=== PATIENT | female | born 1975 | race Caucasian/White ===

== ENCOUNTER 2016-10-18 03:45 | Emergency (ER) | payer OTHER ==
[~2016-10-18] VITALS: Ht 175.3 cm; Wt 66.5 kg
[2016-10-18] MEDS ORDERED: ONDANSETRON 2MG/ML, 2ML ONE (04:11)
[2016-10-18] MEDS ORDERED: MORPHINE SULFATE 4 MG/ML, 1ML ONE (04:11)
[2016-10-18 04:23] LABS: HEMATOCRIT 36.3 % (34.6-47.8); HEMOGLOBIN 12.1 g/dL (11.7-16.4); WHITE BLOOD COUNT 5.7 x10^3/uL (3.4-10)
[2016-10-18] MEDS ORDERED: ONDANSETRON 2MG/ML, 2ML IVPush ONE (04:30)
[2016-10-18] MEDS ORDERED: MORPHINE SULFATE 4 MG/ML, 1ML IVPush PRN (04:30)
[2016-10-18] MEDS ORDERED: SODIUM CHLORIDE FLUSH 10ML SYR IVF ONE (04:30)
[2016-10-18] MEDS ORDERED: SODIUM CHLORIDE 0.9% 1,000ML IVBOLUS ONE (04:30)
[2016-10-18 04:34] LABS: ASPARTATE AMINO TRANSFERASE 16 U/L (15-37); BLOOD UREA NITROGEN 14 mg/dL (7-18)
[2016-10-18] MEDS ORDERED: OMNIPAQUE 350 MG/ML, 100ML BOTTLE ONE (05:23)
[2016-10-18 06:25] VITALS: BP 114/70
== END 2016-10-18 06:28 | disposition home or self-care (01) ==
LOC: ED 04:48
DX: D64.9 Anemia, unspecified (principal); K92.2 Gastrointestinal hemorrhage, unspecified; K92.1 Melena; R10.32 Left lower quadrant pain; K64.8 Other hemorrhoids; Z86.14 Personal history of Methicillin resistant Staphylococcus aureus infection; F17.200 Nicotine dependence, unspecified, uncomplicated
CPT/HCPCS: 36415; 74177; 80053; 81001; 83690; 84703; 85025; 96361; 96374; 96375; 99285; J2405; J7030; Q9967

== ENCOUNTER 2016-10-22 16:41 | Emergency (ER) | payer OTHER ==
[~2016-10-22] VITALS: Ht 175.3 cm; Wt 66.4 kg
[2016-10-22 18:00] LABS: BLOOD UREA NITROGEN 8 mg/dL (7-18)
[2016-10-22 18:22] LABS: HEMATOCRIT 35.8 % (34.6-47.8); HEMOGLOBIN 11.8 g/dL (11.7-16.4); WHITE BLOOD COUNT 6.4 x10^3/uL (3.4-10)
[2016-10-22 18:23] LABS: LARGE PLATELETS 1+
[2016-10-22 21:01] VITALS: BP 113/70
== END 2016-10-22 21:09 | disposition home or self-care (01) ==
LOC: ED 20:17
DX: S29.012A Strain of muscle and tendon of back wall of thorax, initial encounter (principal); R51 Headache; F17.200 Nicotine dependence, unspecified, uncomplicated; X50.3XXA Overexertion from repetitive movements, initial encounter; Y93.01 Activity, walking, marching and hiking; Y92.89 Other specified places as the place of occurrence of the external cause; Y99.8 Other external cause status
CPT/HCPCS: 36415; 70450; 72072; 80048; 81001; 82040; 85025; 87086; 93005; 99285

== ENCOUNTER 2019-02-20 21:49 | Emergency (ER) | payer OTHER ==
[~2019-02-20] VITALS: Ht 172.7 cm; Wt 71.1 kg
[2019-02-20 22:02] VITALS: BP 135/83
== END 2019-02-20 23:32 | disposition home or self-care (01) ==
LOC: ED 23:01
DX: S50.01XA Contusion of right elbow, initial encounter (principal); F17.210 Nicotine dependence, cigarettes, uncomplicated; W18.30XA Fall on same level, unspecified, initial encounter; Y93.89 Activity, other specified; Y92.009 Unspecified place in unspecified non-institutional (private) residence as the place of occurrence of the external cause; Y99.8 Other external cause status
CPT/HCPCS: 99283

== ENCOUNTER 2019-10-24 20:21 | Emergency (ER) | payer OTHER ==
[~2019-10-24] VITALS: Ht 172.7 cm; Wt 77.3 kg
--- NOTE | 2019-10-24 21:10 | NUR ---
PT STATES EVERYTIME SHE "GOES TO THE BATHROOM" (BM & URINATE) SHE SEES BLOOD & CLOTS "LIKE JELLO CLOTS" - BRIGHT RED. SX X 3 DAYS. STATES SHE WAS CONSTIPATED X 1 WEEK. TOOK DULCOLAX SUPPOSITORY ONE NIGHT THEN COLACE X 2 DAYS (LAST DOSE LAST NOC). BM X "PAST 3 DAYS". HX HEMORRHOIDS
--- NOTE | 2019-10-24 21:50 | NUR ---
DR SIMONS BS FOR EXAM. PT REPORT TO TADEO PARK. PT CARE TRANSFERRED.
--- NOTE | 2019-10-24 21:51 | NUR ---
REPORT FROM TADEO SCHULTZ. ERMD IN TO ASSESS PT AT THIS TIME.
--- NOTE | 2019-10-24 22:20 | NUR ---
plan for labs and abdominal imaging. NAD noted in pt at this time. Respirations even and unlabored on RA. Watching television with .
[2019-10-24 22:33] LABS: BASOPHILS # (AUTO) 0.03 x10^3/uL (0-0.1); BASOPHILS % (AUTO) 0 % (0-1); EOSINOPHILS % (AUTO) 4 % (1-7); LYMPHOCYTES # (AUTO) 1.83 x10^3/uL (1-3.4); LYMPHOCYTES % (AUTO) 26 % (22-44); MD NO; MEAN CORPUSCULAR HEMOGLOBIN 27.9 pg (27.0-34.8); MEAN CORPUSCULAR HGB CONC 33.1 g/dL (32.4-35.8); MEAN CORPUSCULAR VOLUME 84.3 fL (80-100); MEAN PLATELET VOLUME 9.4 fL (7.4-10.4); MONOCYTES # (AUTO) 0.57 x10^3/uL (0.2-0.8); MONOCYTES % (AUTO) 8 % (2-9); NEUTROPHILS # (AUTO) 4.39 x10^3/uL (1.8-6.8); NEUTROPHILS % (AUTO) 62 % (42-75); PLATELET COUNT 193 x10^3/uL (130-400); RED BLOOD COUNT 3.67 x10^6/uL (3.82-5.3); RED CELL DISTRIBUTION WIDTH 15.9 % (9.6-15.2)
[2019-10-24 22:43] LABS: ALBUMIN 3.4 g/dL (3.4-5.0); ANION GAP 6 mmol/L (5-15); CALCIUM 8.9 mg/dL (8.5-10.1); CHLORIDE 110 mmol/L (98-107)
[2019-10-24 22:47] LABS: ALANINE AMINOTRANSFERASE 19 U/L (12-78); ALKALINE PHOSPHATASE 79 U/L (45-117); BILIRUBIN,TOTAL 0.3 mg/dL (0.2-1.0); CREATININE 1.08 mg/dL (0.55-1.02); TOTAL PROTEIN 6.8 g/dL (6.4-8.2)
--- NOTE | 2019-10-24 23:10 | NUR ---
PT UP FOR RECHECK. NAD NOTED IN PT AT THIS TIME. RESPIRATIONS EVEN AND UNLABORED ON RA. AT BEDSIDE.
[2019-10-24 23:14] VITALS: BP 122/71
== END 2019-10-24 23:46 | disposition home or self-care (01) ==
LOC: ED 23:06
DX: K64.8 Other hemorrhoids (principal); K42.9 Umbilical hernia without obstruction or gangrene; K92.1 Melena; F17.210 Nicotine dependence, cigarettes, uncomplicated
CPT/HCPCS: 36415; 74022; 80053; 85025; 99284; 99406